=== PATIENT | male | born 1960 | race Caucasian/White ===

== ENCOUNTER 2024-10-02 18:50 | Inpatient (IN) | payer MEDICAID, OTHER ==
[~2024-10-02] VITALS: Ht 175.3 cm; Wt 101.6 kg
[2024-10-02 19:49] LABS: BASOPHILS # (AUTO) 0.1 K/UL (0.0-0.2); BASOPHILS % (AUTO) 1.5 % (0.0-2.0); EOSINOPHILS # (AUTO) 0.1 K/uL (0.0-0.7); EOSINOPHILS % (AUTO) 1.6 % (0.0-7.0); HEMATOCRIT 41.8 % (36.7-47.1); LYMPHOCYTES # (AUTO) 2.6 K/uL (0.8-4.8); LYMPHOCYTES % (AUTO) 30.5 % (20.5-51.5); MEAN CORPUSCULAR HGB CONC 34 g/dL (32.5-36.3); MEAN CORPUSCULAR VOLUME 83.3 fL (73.0-96.2); MONOCYTES # (AUTO) 0.6 K/uL (0.1-1.30); MONOCYTES % (AUTO) 7.4 % (0.0-11.0); NEUTROPHILS # (AUTO) 4.9 K/uL (1.8-8.9); PLATELET COUNT (AUTO) 234 K/uL (152-348); RED BLOOD CELL COUNT(AUTO) 5.02 MIL/uL (4.06-5.63); RED CELL DISTRIBUTION WIDTH 13.8 % (12.1-16.2); WHITE BLOOD COUNT (AUTO) 8.4 K/uL (3.6-10.2)
[2024-10-02 20:08] LABS: CALCIUM 9.2 mg/dL (8.5-10.1); CARBON DIOXIDE 28 mmol/L (21-32); CHLORIDE 105 mmol/L (98-107); CREATININE 1.1 mg/dL (0.6-1.3); DIFFERENTIAL COMMENT 1; GLUCOSE 118 mg/dL (74-106); POTASSIUM 3.9 mmol/L (3.5-5.1); SODIUM SERUM 140 mmol/L (136-145); UREA NITROGEN, BLOOD 21 mg/dL (7-18)
[2024-10-02 20:09] LABS: ETHANOL < 3 MG/DL (0-10)
[2024-10-02 20:13] LABS: ACETAMINOPHEN < 2.0 ug/mL (10-30); ALANINE AMINOTRANSFERASE 18 U/L (16-63); ALBUMIN 3.6 g/dL (3.4-5.0); ALKALINE PHOSPHATASE 89 U/L (50-136); ASPARTATE AMINOTRANSFERASE 15 U/L (15-37); BILIRUBIN,DIRECT 0.1 mg/dL (0.0-0.2); BILIRUBIN,TOTAL 0.4 mg/dL (0.2-1.0); TOTAL PROTEIN, SERUM 6.9 g/dL (6.4-8.2)
[2024-10-02 20:21] LABS: THYROID STIMULATING HORMONE 0.858 mIU/mL (0.358-3.740)
[2024-10-02 20:29] LABS: *BILIRUBIN,URIN NEGATIVE (NEGATIVE); *BLOOD, URINE NEGATIVE (NEGATIVE); *CLARITY,URINE CLEAR (CLEAR); *COLOR,URINE YELLOW (YELLOW); *KETONES,URINE NEGATIVE (NEGATIVE); *PROTEIN,URINE NEGATIVE (NEGATIVE); *UROBILINOGEN,URINE 0.2 E.U./dl (NORMAL); LEUKOCYTE ESTERASE ,URINE NEGATIVE (NEGATIVE); NITRITE, URINE NEGATIVE (NEGATIVE); PH,URINE 5.5 (5.0-8.0); UGLUCOSE NEGATIVE (NEGATIVE)
[2024-10-02 21:03] LABS: *AMPHETAMINE, URINE POSITIVE (NEGATIVE); *BARBITURATE, URINE NEGATIVE (NEGATIVE); *BENZODIAZEPINE, URINE NEGATIVE (NEGATIVE); *CANNABINOID, URINE NEGATIVE (NEGATIVE); *COCCAINE, URINE NEGATIVE (NEGATIVE); *OPIATE, URINE NEGATIVE (NEGATIVE); *PHENCYCLIDINE SCREEN,URINE NEGATIVE (NEGATIVE); FENTANYL, URINE NEGATIVE (NEGATIVE)
[2024-10-02] MEDS ORDERED: PALI234D IM (23:35)
[2024-10-02] MEDS ORDERED: NAPR-1009 PO (23:35)
[2024-10-02] MEDS ORDERED: CLON0.5T4 PO (23:35)
[2024-10-02] MEDS ORDERED: DICL100G31 TP (23:35)
[2024-10-02] MEDS ORDERED: ALLO100T PO (23:35)
[2024-10-02] MEDS ORDERED: LORA10TA7 PO (23:35)
[2024-10-02] MEDS ORDERED: LEVO75TA7 PO (23:35)
[2024-10-02] MEDS ORDERED: ALBU18HF2 INH (23:35)
[2024-10-02] MEDS ORDERED: OMEP40CA21 PO (23:35)
[2024-10-02] MEDS ORDERED: GABA400C PO (23:35)
[2024-10-02] MEDS ORDERED: TRIA1TAB4 PO (23:35)
[2024-10-02] MEDS ORDERED: DOCU100C36 PO (23:35)
[2024-10-02] MEDS ORDERED: METF-440 PO (23:35)
[2024-10-02] MEDS ORDERED: LISI10TA29 PO (23:35)
[2024-10-02] MEDS ORDERED: DIVA-78 PO (23:35)
[2024-10-03] MEDS ORDERED: TEMAZEPAM 7.5 MG CAPSULE PO PRN ×2 (00:15)
[2024-10-03] MEDS ORDERED: MAG HYDROX/AL HYDROX/SIMETH 30 ML LIQUID UDC PO PRN (00:15)
[2024-10-03] MEDS: MAGNESIUM HYDROXIDE 30 ML LIQUID UDC PO PRN (06:32)
[2024-10-03 08:30] VITALS: BP 116/72; TEMP 98.2; O2SAT 96
[2024-10-03] MEDS: LORAZEPAM 1 MG TABLET PO PRN ×2 (09:00→20:00)
[2024-10-03] MEDS ORDERED: TEMAZEPAM 15 MG CAPSULE PO PRN (12:45)
[2024-10-03] MEDS: DIVALPROEX 250 MG TABLET.DR PO SCH ×2 (12:56→22:20)
[2024-10-03 16:34] VITALS: BP 134/79; TEMP 97.9; O2SAT 100
[2024-10-03] MEDS ORDERED: ALBUTEROL SULFATE 2.5 MG/3 ML NEBU NEB PRN (17:00)
[2024-10-03] MEDS ORDERED: ALBUTEROL SULFATE 8 GM HFA.AER.AD IH PRN (17:00)
[2024-10-03 20:00] VITALS: BP 102/78; TEMP 98.1
[2024-10-03] MEDS: NAPROXEN 500 MG TABLET PO PRN (20:00)
[2024-10-03] MEDS: DOCUSATE SODIUM 100 MG CAPSULE PO SCH (22:20)
[2024-10-04] MEDS: PANTOPRAZOLE SODIUM 40 MG TABLET.DR PO SCH (07:06)
[2024-10-04] MEDS: LEVOTHYROXINE SODIUM 50 MCG TABLET PO SCH (07:06)
[2024-10-04 08:37] LABS: BASOPHILS % (AUTO) 0.5 % (0.0-2.0); EOSINOPHILS # (AUTO) 0.1 K/uL (0.0-0.7); EOSINOPHILS % (AUTO) 0.7 % (0.0-7.0); HEMATOCRIT 44.2 % (36.7-47.1); HEMOGLOBIN 14.6 g/dL (12.5-16.3); LYMPHOCYTES # (AUTO) 3.8 K/uL (0.8-4.8); MEAN CORPUSCULAR HEMOGLOBIN 27.5 uug (23.8-33.4); MEAN CORPUSCULAR HGB CONC 33 g/dL (32.5-36.3); MEAN CORPUSCULAR VOLUME 83.4 fL (73.0-96.2); MONOCYTES # (AUTO) 0.5 K/uL (0.1-1.30); MONOCYTES % (AUTO) 5.4 % (0.0-11.0); NEUTROPHILS % (AUTO) 53.4 % (38.5-71.5); PLATELET COUNT (AUTO) 261 K/uL (152-348); RED CELL DISTRIBUTION WIDTH 13.9 % (12.1-16.2); WHITE BLOOD COUNT (AUTO) 9.4 K/uL (3.6-10.2)
[2024-10-04] MEDS: METFORMIN HCL 500 MG TABLET PO SCH (08:39)
[2024-10-04] MEDS: LORATADINE 10 MG TABLET PO SCH (08:40)
[2024-10-04] MEDS: LISINOPRIL 10 MG TABLET PO SCH (08:41)
[2024-10-04 08:42] VITALS: BP 124/83; TEMP 98.2; O2SAT 100
[2024-10-04 08:48] LABS: DIFFERENTIAL COMMENT 1
[2024-10-04 08:51] LABS: ALBUMIN 3.8 g/dL (3.4-5.0); BILIRUBIN,TOTAL 0.7 mg/dL (0.2-1.0); CALCIUM 9.6 mg/dL (8.5-10.1); CREATININE 1.1 mg/dL (0.6-1.3); POTASSIUM 4.1 mmol/L (3.5-5.1); TOTAL PROTEIN, SERUM 7.7 g/dL (6.4-8.2)
[2024-10-04] MEDS: ALLOPURINOL 100 MG TABLET PO SCH (09:00)
[2024-10-04 09:16] LABS: PHOSPHOROUS 2.8 mg/dL (2.5-4.9)
[2024-10-04 15:51] VITALS: BP 126/81; TEMP 98; O2SAT 100
[2024-10-04] MEDS: GABAPENTIN 400 MG CAPSULE PO SCH (16:51)
[2024-10-04 21:04] VITALS: BP 125/86; TEMP 97.5; O2SAT 99
[2024-10-05] MEDS: DIVALPROEX 500 MG TABLET.DR PO SCH (08:09)
[2024-10-05] MEDS: CYANOCOBALAMIN 1,000 MCG TABLET PO SCH (08:09)
[2024-10-05 08:29] VITALS: BP 116/56; TEMP 98.5; O2SAT 98
[2024-10-05 16:36] VITALS: BP 126/69; TEMP 98.3; O2SAT 100
[2024-10-05 19:40] VITALS: BP 115/63; TEMP 98.6; O2SAT 100
[2024-10-05] MEDS: ATORVASTATIN 10 MG TABLET PO SCH (20:09)
[2024-10-05] MEDS: ACETAMINOPHEN 325 MG TABLET PO PRN (20:10)
[2024-10-06 08:28] VITALS: BP 114/67; TEMP 98.4; O2SAT 100
[2024-10-06 16:22] VITALS: BP 134/85; TEMP 98.1; O2SAT 100
[2024-10-06 20:00] VITALS: BP 105/55; TEMP 98.1; O2SAT 94
[2024-10-07 08:50] VITALS: BP 123/65; TEMP 97.9; O2SAT 98
[2024-10-07 16:24] VITALS: BP 148/68; TEMP 98.1; O2SAT 94
[2024-10-07 20:00] VITALS: BP 116/60; TEMP 98.6; O2SAT 93
[2024-10-08 08:35] VITALS: BP 109/49; TEMP 98.4; O2SAT 98
[2024-10-08 15:18] VITALS: BP 132/78; TEMP 98; O2SAT 98
[2024-10-08] MEDS: risperiDONE 1 MG TABLET PO ONE (18:32)
[2024-10-08 20:00] VITALS: BP 120/48; TEMP 98.5; O2SAT 92
[2024-10-09 07:48] VITALS: BP 122/82; TEMP 98; O2SAT 98
[2024-10-09 08:17] VITALS: BP 122/82
[2024-10-09] MEDS: risperiDONE 1 MG TABLET PO ONE (08:17)
[2024-10-09] MEDS ORDERED: risperiDONE 1 MG TABLET PO SCH (17:00)
== END 2024-10-09 12:30 | DRG 750 ==
LOC: ER 19:00 → GPS 22:53
PROVIDERS: ADMIT Psychiatry & Neurology Psychiatry; ATTEND Internal Medicine
DX: F20.0 Paranoid schizophrenia (principal); E11.40 Type 2 diabetes mellitus with diabetic neuropathy, unspecified; E03.9 Hypothyroidism, unspecified; J44.9 Chronic obstructive pulmonary disease, unspecified; K21.9 Gastro-esophageal reflux disease without esophagitis; Z91.199 Patient's noncompliance with other medical treatment and regimen due to unspecified reason; Z79.899 Other long term (current) drug therapy; F17.210 Nicotine dependence, cigarettes, uncomplicated; E66.9 Obesity, unspecified; Z68.33 Body mass index [BMI] 33.0-33.9, adult; M15.9 Polyosteoarthritis, unspecified; Z79.84 Long term (current) use of oral hypoglycemic drugs; Z79.890 Hormone replacement therapy; E78.5 Hyperlipidemia, unspecified; F15.10 Other stimulant abuse, uncomplicated; F12.10 Cannabis abuse, uncomplicated; I10 Essential (primary) hypertension
CPT/HCPCS: 36415; 83550; 83735; 84100; 84443; 85025; C1758; G0480; J3490; J8499